=== PATIENT | female | born 1975 | race Caucasian/White ===

== ENCOUNTER 2017-08-29 10:51 | Inpatient (IN) ==
[2017-08-29] MEDS: DEXTROSE 5% NACL 0.9% 1,000 ML IV SCH ×2 (11:00→19:22)
[2017-08-29 13:10] LABS: Basophils # 0.2 10*3/uL (0.0-0.2); Basophils % 0.8 % (0.0-0.8); Eosinophils # 0.1 10*3/uL (0.0-0.87); Eosinophils % 0.8 % (0.00-10.9); Hematocrit 47.7 VOL% (35.7-47.0); Hemoglobin 14.6 GM/DL (12.0-16.0); Immature Granulocytes % 1.9 %; Immature Granulocytes Absolute 0.33 #; Lymphocytes # 4.3 10*3/uL (1.4-4.0); Lymphocytes % 24.4 % (21.3-54.2); Mean Corpuscular HGB Conc 30.6 GM/DL (32-36); Mean Corpuscular Hemoglobin 27 PG (27-34); Mean Corpuscular Volume 87.2 FL (87-102); Mean Platelet Volume 10.2 FL (9.6-12.0); Monocytes # 1.3 10*3/uL (0.11-0.8); Monocytes % 7.4 % (1.7-12.7); Neutrophils # 11.5 10*3/uL (1.4-7.4); Neutrophils % 64.7 % (38.7-73.9); Platelet Count 362 T/CUMM (130-400); Red Blood Count 5.47 MC/CUMM (3.8-5.5); Red Cell Distribution Width 13.4 % (9.3-17.3); White Blood Count 17.7 T/CUMM (4-12)
[2017-08-29 13:52] LABS: Albumin 3.4 G/DL (3.4-5.0); Bilirubin,Total 0.5 MG/DL (0.2-1.0); Calcium 8.5 MG/DL (8.5-10.1); Osmolality,Calculated 276.7 MOS/KG (273-304); Potassium 4.3 MMOL/L (3.5-5.1); Thyroid Stimulating Hormone 2.16 uIU/ml (0.358-3.74); Total Protein 7.2 G/DL (6.4-8.3)
[2017-08-29] MEDS: cefTAZidime 1,000 MG in SYRINGE 1 EACH IV SCH ×4 (14:00→21:59)
[2017-08-29 14:09] LABS: Troponin I Only < 0.015 NG/ML (0.00-0.045)
[2017-08-29 14:43] LABS: Apearance,Urine Slightly Hazy (Clear); Bilirubin,Urine Negative (Negative); Blood, Urine Negative (Negative); Glucose,Urine (UA) Negative (Negative); Ketones,Urine Negative (Negative); Mucus,Urine Occasional /LPF (Occasional); Nitrite,Urine Negative (Negative); Protein,Urine Negative; RBC,Urine 1 /HPF (0-4); Squamous Epithelial Cell,Urine Occasional /HPF (0-10); Urine Color Yellow (Yellow); Urine Specific Gravity 1.011 (1.001-1.035); Urine Urobilinogen < 2.0 EU/DL (0.2-1.0); WBC,Urine 3 /HPF (0-6)
[2017-08-29] MEDS: MEROPENEM 1,000 MG in SYRINGE 1 EACH IV SCH ×2 (14:45→22:00)
[2017-08-29] MEDS: SERTRALINE 25 MG TABLET PO SCH (20:54)
[2017-08-29] MEDS: MELATONIN 3 MG TABLET PO SCH (20:54)
[2017-08-29] MEDS: CITALOPRAM 20 MG TABLET PO SCH (20:54)
[2017-08-30] MEDS: DEXTROSE 5% NACL 0.9% 1,000 ML IV SCH ×3 (05:08→20:03)
[2017-08-30 05:32] LABS: Basophils # 0.1 10*3/uL (0.0-0.2); Basophils % 0.6 % (0.0-0.8); Eosinophils # 0.3 10*3/uL (0.0-0.87); Eosinophils % 1.9 % (0.00-10.9); Hematocrit 42.9 VOL% (35.7-47.0); Hemoglobin 13.8 GM/DL (12.0-16.0); Immature Granulocytes % 0.7 %; Lymphocytes # 6.5 10*3/uL (1.4-4.0); Lymphocytes % 43.9 % (21.3-54.2); Mean Corpuscular HGB Conc 32.2 GM/DL (32-36); Mean Corpuscular Hemoglobin 27 PG (27-34); Mean Corpuscular Volume 84.1 FL (87-102); Monocytes # 0.9 10*3/uL (0.11-0.8); Neutrophils % 46.9 % (38.7-73.9); Platelet Count 304 T/CUMM (130-400); Red Cell Distribution Width 13.3 % (9.3-17.3); White Blood Count 14.9 T/CUMM (4-12)
[2017-08-30] MEDS: cefTAZidime 1,000 MG in SYRINGE 1 EACH IV SCH ×4 (06:04→21:18)
[2017-08-30] MEDS: MEROPENEM 1,000 MG in SYRINGE 1 EACH IV SCH ×3 (08:02→23:55)
[2017-08-30] MEDS: MELATONIN 3 MG TABLET PO SCH (20:02)
[2017-08-30] MEDS: SERTRALINE 25 MG TABLET PO SCH (20:02)
[2017-08-30] MEDS: CITALOPRAM 20 MG TABLET PO SCH (20:02)
[2017-08-30] MEDS ORDERED: ALUMINUM/MAGNES/SIMETH MAX STR 30 ML UDCUP PO PRN (21:28)
[2017-08-30] MEDS ORDERED: PANTOPRAZOLE 40 MG TABLET PO SCH (21:30)
[2017-08-30] MEDS: PANTOPRAZOLE 40 MG TABLET PO SCH (22:09)
[2017-08-31 05:08] LABS: Basophils # 0.1 10*3/uL (0.0-0.2); Basophils % 0.6 % (0.0-0.8); Eosinophils # 0.4 10*3/uL (0.0-0.87); Eosinophils % 3.2 % (0.00-10.9); Hematocrit 44.3 VOL% (35.7-47.0); Hemoglobin 14.2 GM/DL (12.0-16.0); Immature Granulocytes Absolute 0.13 #; Lymphocytes # 5.4 10*3/uL (1.4-4.0); Lymphocytes % 41.9 % (21.3-54.2); Mean Corpuscular HGB Conc 32.1 GM/DL (32-36); Mean Corpuscular Hemoglobin 27 PG (27-34); Mean Corpuscular Volume 84.1 FL (87-102); Mean Platelet Volume 9.6 FL (9.6-12.0); Monocytes # 0.9 10*3/uL (0.11-0.8); Monocytes % 6.9 % (1.7-12.7); Neutrophils % 46.4 % (38.7-73.9); Platelet Count 328 T/CUMM (130-400); Red Blood Count 5.27 MC/CUMM (3.8-5.5); Red Cell Distribution Width 13.5 % (9.3-17.3)
[2017-08-31] MEDS: cefTAZidime 1,000 MG in SYRINGE 1 EACH IV SCH ×3 (05:15→21:02)
[2017-08-31] MEDS: MEROPENEM 1,000 MG in SYRINGE 1 EACH IV SCH ×3 (06:19→22:18)
[2017-08-31] MEDS: DEXTROSE 5% NACL 0.9% 1,000 ML IV SCH ×4 (06:23→21:01)
[2017-08-31] MEDS: PANTOPRAZOLE 40 MG TABLET PO SCH ×3 (07:30→21:01)
[2017-08-31] MEDS: ONDANSETRON 4 MG/2 ML VIAL IV PRN (07:49)
[2017-08-31] MEDS ORDERED: PANTOPRAZOLE 40 MG TABLET PO SCH (09:00)
[2017-08-31] MEDS: MELATONIN 3 MG TABLET PO SCH (21:01)
[2017-08-31] MEDS: CITALOPRAM 20 MG TABLET PO SCH (21:01)
[2017-08-31] MEDS: SERTRALINE 25 MG TABLET PO SCH (21:01)
[2017-09-01] MEDS: DEXTROSE 5% NACL 0.9% 1,000 ML IV SCH ×2 (05:14→13:03)
[2017-09-01] MEDS: cefTAZidime 1,000 MG in SYRINGE 1 EACH IV SCH ×2 (05:15→13:02)
[2017-09-01] MEDS: ONDANSETRON 4 MG/2 ML VIAL IV PRN (06:30)
[2017-09-01] MEDS: MEROPENEM 1,000 MG in SYRINGE 1 EACH IV SCH ×2 (06:34→13:34)
[2017-09-01] MEDS: PANTOPRAZOLE 40 MG TABLET PO SCH (08:20)
[2017-09-01 11:45] VITALS: BP 127/73
== END 2017-09-01 15:33 | disposition home or self-care (01) | DRG 195 ==
LOC: N.5E 11:01
PROVIDERS: ADMIT Internal Medicine Pulmonary Disease; ATTEND Internal Medicine Pulmonary Disease

== ENCOUNTER 2019-04-24 18:35 | Observation (INO) ==
[2019-04-24] MEDS ORDERED: ASPIRIN 325 MG TABLET PO STA (18:45)
[2019-04-24] MEDS ORDERED: NITROGLYCERIN SL 0.4 MG TABLET SL STA ×2 (19:04→20:05)
[2019-04-24 19:08] LABS: Basophils # 0.1 10*3/uL (0.0-0.2); Basophils % 0.8 % (0.0-0.8); Eosinophils # 0.2 10*3/uL (0.0-0.87); Eosinophils % 1.6 % (0.00-10.9); Hematocrit 46.3 VOL% (35.7-47.0); Hemoglobin 14.6 GM/DL (12.0-16.0); Immature Granulocytes % 0.3 %; Immature Granulocytes Absolute 0.04 #; Lymphocytes # 3.7 10*3/uL (1.4-4.0); Lymphocytes % 31.9 % (21.3-54.2); Mean Corpuscular HGB Conc 31.5 GM/DL (32-36); Mean Corpuscular Volume 84.8 FL (87-102); Mean Platelet Volume 9.7 FL (9.6-12.0); Neutrophils % 58.4 % (38.7-73.9); Platelet Count 347 T/CUMM (130-400); Red Blood Count 5.46 MC/CUMM (3.8-5.5); Red Cell Distribution Width 13.6 % (9.3-17.3); White Blood Count 11.6 T/CUMM (4-12)
[2019-04-24] MEDS ORDERED: ASPIRIN 325 MG TABLET ONE (19:18)
[2019-04-24 19:25] LABS: Albumin 4.1 G/DL (3.4-5.0); Bilirubin,Total 0.6 MG/DL (0.2-1.0); Calcium 9.3 MG/DL (8.5-10.1); Osmolality,Calculated 279.4 MOS/KG (273-304); Total Protein 8.6 G/DL (6.4-8.3)
[2019-04-24] MEDS ORDERED: MORPHINE 4 MG/1 ML VIAL IV PRN (20:22)
[2019-04-24] MEDS ORDERED: NITROGLYCERIN SL 0.4 MG TABLET SL PRN (20:22)
[2019-04-24] MEDS ORDERED: GLUCAGON 1 MG VIAL IM PRN (20:22)
[2019-04-24] MEDS ORDERED: ONDANSETRON 4 MG/2 ML VIAL IV PRN (20:22)
[2019-04-24] MEDS ORDERED: ACETAMINOPHEN 325 MG TABLET PO PRN (20:22)
[2019-04-24] MEDS ORDERED: POTASSIUM CHLORIDE 20 MEQ TABLET PO PRN (20:22)
[2019-04-24] MEDS ORDERED: DEXTROSE 10% 250 ML BAG IV PRN (20:22)
[2019-04-24] MEDS ORDERED: MELATONIN 3 MG TABLET PO SCH (22:57)
[2019-04-24] MEDS ORDERED: amLODIPine 10 MG TABLET PO SCH (22:57)
[2019-04-24] MEDS ORDERED: SERTRALINE 25 MG TABLET PO SCH (22:57)
[2019-04-25 00:38] LABS: Risk Ratio 3.46; Thyroid Stimulating Hormone 2.22 uIU/ml (0.358-3.74)
[2019-04-25 01:05] LABS: Apearance,Urine CLEAR (Clear); Bacteria,Urine Occasional /HPF (Few); Bilirubin,Urine Negative (Negative); Blood, Urine Negative (Negative); Glucose,Urine (UA) Negative (Negative); Ketones,Urine 5 mg/dL (Negative); Mucus,Urine Occasional /LPF (Occasional); Nitrite,Urine Negative (Negative); Protein,Urine Negative; RBC,Urine 1 /HPF (0-4); Squamous Epithelial Cell,Urine Occasional /HPF (0-10); Urine Color Yellow (Yellow); Urine Urobilinogen < 2.0 EU/DL (0.2-1.0); WBC,Urine 3 /HPF (0-6)
[2019-04-25 05:41] LABS: Troponin I < 0.015 NG/ML (0.00-0.045)
[2019-04-25 07:34] LABS: Albumin 3.3 G/DL (3.4-5.0); Bilirubin,Total 0.4 MG/DL (0.2-1.0); Calcium 8.6 MG/DL (8.5-10.1); Osmolality,Calculated 281.3 MOS/KG (273-304); Total Protein 7.3 G/DL (6.4-8.3)
[2019-04-25 08:32] VITALS: BP 125/70
[2019-04-25] MEDS ORDERED: PANTOPRAZOLE 40 MG TABLET PO SCH (09:00)
[2019-04-25] MEDS ORDERED: VALSARTAN 80 MG TABLET PO SCH (09:00)
[2019-04-25] MEDS ORDERED: hydroCHLOROthiazide 12.5 MG CAPSULE PO SCH (09:00)
[2019-04-25] MEDS ORDERED: ASPIRIN EC 325 MG TABLET PO SCH (09:00)
[2019-04-25] MEDS ORDERED: VALSARTAN/HCTZ 80-12.5 MG TABLET PO SCH (09:00)
== END 2019-04-25 10:24 | disposition home or self-care (01) ==
LOC: N.EDINP 18:35 → N.ED 18:35 → SUATTDRO 20:22 → N.TELES 21:05 → N.TELEN 23:13
PROVIDERS: ADMIT Internal Medicine; ATTEND Family Medicine

== ENCOUNTER 2019-08-17 10:14 | Observation (INO) ==
[2019-08-17] MEDS ORDERED: AMPICILLIN/SULBACTAM 3,000 MG in SODIUM CHLORIDE 0.9% 100 ML IV STA (10:40)
[2019-08-17] MEDS ORDERED: SODIUM CHLORIDE 0.9% 1,000 ML IV STA (10:40)
[2019-08-17] MEDS ORDERED: HYDROmorphone 2 MG/1 ML VIAL IV STA (10:40)
[2019-08-17] MEDS ORDERED: ONDANSETRON 4 MG/2 ML VIAL IV STA (10:40)
[2019-08-17 11:29] LABS: Albumin 3.8 G/DL (3.4-5.0); Bilirubin,Total 0.6 MG/DL (0.2-1.0); Calcium 9.2 MG/DL (8.5-10.1); Osmolality,Calculated 273.7 MOS/KG (273-304); Total Protein 8.2 G/DL (6.4-8.3)
[2019-08-17] MEDS ORDERED: FAMOTIDINE 20 MG/2 ML VIAL IV ONE (12:13)
[2019-08-17] MEDS ORDERED: TISSUE ADHESIVE 1 EACH APPLICATOR TOP ONE (13:10)
[2019-08-17] MEDS ORDERED: LIDOCAINE 1%/EPI INJ 20 ML VIAL ONE (13:10)
[2019-08-17] MEDS ORDERED: BUPIVACAINE MPF 0.25% 30 ML VIAL ONE (13:10)
[2019-08-17] MEDS ORDERED: LIDOCAINE 2% 5 ML VIAL ONE (13:34)
[2019-08-17] MEDS ORDERED: propofoL 200 MG/20 ML VIAL IV ONE (13:34)
[2019-08-17] MEDS ORDERED: MIDAZOLAM 2 MG/2 ML VIAL ONE (13:34)
[2019-08-17] MEDS ORDERED: ACETAMINOPHEN 1,000 MG/100 ML VIAL IV ONE (13:35)
[2019-08-17] MEDS ORDERED: HYDROmorphone 2 MG/1 ML VIAL ONE (13:35)
[2019-08-17] MEDS ORDERED: NEOSTIGMINE 10 MG/10 ML VIAL ONE (13:35)
[2019-08-17] MEDS ORDERED: DEXAMETHASONE 4 MG/1 ML VIAL ONE (13:35)
[2019-08-17] MEDS ORDERED: LACTATED RINGERS 1,000 ML IV ONE (13:35)
[2019-08-17] MEDS ORDERED: ONDANSETRON 4 MG/2 ML VIAL ONE (13:35)
[2019-08-17] MEDS ORDERED: fentaNYL 100 MCG/2 ML VIAL ONE (13:35)
[2019-08-17] MEDS ORDERED: GLYCOPYRROLATE 0.4 MG/2 ML VIAL ONE (13:35)
[2019-08-17] MEDS ORDERED: ROCURONIUM 100 MG/10 ML VIAL IV ONE (13:35)
[2019-08-17] MEDS ORDERED: KETOROLAC 30 MG/1 ML VIAL ONE (13:58)
[2019-08-17] MEDS ORDERED: KETOROLAC 30 MG/1 ML VIAL IV ONE (13:58)
[2019-08-17] MEDS ORDERED: ONDANSETRON 4 MG/2 ML VIAL IV PRN (16:56)
[2019-08-17] MEDS: LACTATED RINGERS 1,000 ML IV SCH (18:21)
[2019-08-17] MEDS: AMPICILLIN/SULBACTAM 3,000 MG in SODIUM CHLORIDE 0.9% 100 ML IV SCH (20:59)
[2019-08-18] MEDS: AMPICILLIN/SULBACTAM 3,000 MG in SODIUM CHLORIDE 0.9% 100 ML IV SCH ×2 (03:19→08:34)
[2019-08-18] MEDS: LACTATED RINGERS 1,000 ML IV SCH (05:35)
[2019-08-18 07:27] LABS: Basophils % 0.1 % (0.0-0.8); Immature Granulocytes % 0.6 %; Immature Granulocytes Absolute 0.09 #; Lymphocytes # 1.7 10*3/uL (1.4-4.0); Lymphocytes % 12.2 % (21.3-54.2); Mean Corpuscular HGB Conc 31.2 GM/DL (32-36); Mean Corpuscular Volume 86.5 FL (87-102); Mean Platelet Volume 9.9 FL (9.6-12.0); Monocytes % 5.3 % (1.7-12.7); Neutrophils % 81.8 % (38.7-73.9); Platelet Count 351 T/CUMM (130-400); Red Blood Count 4.97 MC/CUMM (3.8-5.5); Red Cell Distribution Width 13.2 % (9.3-17.3)
[2019-08-18 07:31] LABS: Hemoglobin 13.4 GM/DL (12.0-16.0); White Blood Count 13.9 T/CUMM (4-12)
[2019-08-18 08:32] VITALS: BP 139/79
[2019-08-18] MEDS ORDERED: VALSARTAN/HCTZ 80-12.5 MG TABLET PO SCH (09:30)
[2019-08-18] MEDS ORDERED: VALSARTAN 80 MG TABLET PO SCH (10:00)
[2019-08-18] MEDS ORDERED: hydroCHLOROthiazide 12.5 MG CAPSULE PO SCH (10:00)
[2019-08-18] MEDS ORDERED: MELATONIN 3 MG TABLET PO SCH (21:00)
[2019-08-18] MEDS ORDERED: SERTRALINE 25 MG TABLET PO SCH (21:00)
== END 2019-08-18 11:05 | disposition home or self-care (01) ==
LOC: N.ED 10:14 → N.EDINP 10:14 → N.3E 12:00
PROVIDERS: ADMIT Surgery; ATTEND Surgery

== ENCOUNTER 2019-09-29 08:49 | Observation (INO) ==
[2019-09-29] MEDS ORDERED: ASPIRIN 325 MG TABLET PO STA (09:44)
[2019-09-29 09:49] LABS: Alanine Aminotransferase 21 U/L (13-56); Albumin 3.6 G/DL (3.4-5.0); Alkaline Phosphatase 61 U/L (45-117); Aspartate Amino Transferase 14 U/L (0-37); Bilirubin,Total < 0.39 MG/DL (0.2-1.0); Blood Urea Nitrogen 14 MG/DL (7-18); Calcium 9.1 MG/DL (8.5-10.1); Estimated Glom Filtration Rate 148 ML/MIN; Glucose 104 MG/DL (74-106); Osmolality,Calculated 275.7 MOS/KG (273-304); Total Protein 7.9 G/DL (6.4-8.3); Troponin I < 0.015 NG/ML (0.00-0.045)
[2019-09-29] MEDS ORDERED: BISACODYL 5 MG TABLET PO PRN (10:18)
[2019-09-29] MEDS ORDERED: guaiFENesin/DM ER 600-30 MG TABLET PO PRN (10:18)
[2019-09-29] MEDS ORDERED: PROMETHAZINE 25 MG TABLET PO PRN (10:18)
[2019-09-29] MEDS ORDERED: LACTULOSE 20 GM/30 ML UDCUP PO PRN (10:18)
[2019-09-29] MEDS ORDERED: hydrALAZINE 20 MG/1 ML VIAL IV PRN (10:18)
[2019-09-29] MEDS ORDERED: SIMETHICONE CHEW 125 MG TABLET PO PRN (10:18)
[2019-09-29] MEDS ORDERED: MAGNESIUM SULF RIDER 2 GM in PREMIX 1 EACH IV PRN ×2 (10:18→11:01)
[2019-09-29] MEDS ORDERED: diphenhydrAMINE CAP 25 MG CAPSULE PO PRN (10:18)
[2019-09-29] MEDS ORDERED: ZALEPLON 5 MG CAPSULE PO PRN (10:18)
[2019-09-29] MEDS ORDERED: ALUMINUM/MAGNES/SIMETH MAX STR 30 ML UDCUP PO PRN (10:18)
[2019-09-29] MEDS ORDERED: CALCIUM CARBONATE CHEW 500 MG TABLET PO PRN (10:18)
[2019-09-29] MEDS ORDERED: MORPHINE 4 MG/1 ML VIAL IV PRN (10:18)
[2019-09-29] MEDS ORDERED: DOCUSATE SODIUM 100 MG CAPSULE PO PRN (10:18)
[2019-09-29] MEDS ORDERED: MAGNESIUM SULF RIDER 4 GM in PREMIX 1 EACH IV PRN (10:18)
[2019-09-29 10:32] LABS: Thyroid Stimulating Hormone 3.18 uIU/ml (0.358-3.74)
[2019-09-29] MEDS ORDERED: ENOXAPARIN 120 MG/0.8 ML SYRINGE SUBCUT ONE (10:58)
[2019-09-29] MEDS ORDERED: POTASSIUM CHLORIDE RIDER 10 MEQ in PREMIX 1 EACH IV PRN (11:01)
[2019-09-29] MEDS ORDERED: METOPROLOL SUCCINATE XL 25 MG TABLET PO SCH ×2 (11:30→21:00)
[2019-09-29] MEDS: NITROGLYCERIN 2% OINT 1 INCH/GM PACK TOP SCH ×2 (11:59→17:25)
[2019-09-29 12:33] LABS: Apearance,Urine CLEAR (Clear); Bilirubin,Urine Negative (Negative); Blood, Urine Negative (Negative); Glucose,Urine (UA) Negative (Negative); Ketones,Urine Negative (Negative); Mucus,Urine Occasional /LPF (Occasional); Nitrite,Urine Negative (Negative); Protein,Urine Negative; RBC,Urine 1 /HPF (0-4); Squamous Epithelial Cell,Urine Occasional /HPF (0-10); Urine Color Yellow (Yellow); Urine Specific Gravity 1.012 (1.001-1.035); Urine Urobilinogen < 2.0 EU/DL (0.2-1.0); WBC,Urine 1 /HPF (0-6)
[2019-09-29 13:58] LABS: Troponin I < 0.015 NG/ML (0.00-0.045)
[2019-09-29 16:48] LABS: Troponin I < 0.015 NG/ML (0.00-0.045)
[2019-09-29] MEDS ORDERED: NITROGLYCERIN SL 0.4 MG TABLET SL ONE ×2 (17:31→17:32)
[2019-09-29] MEDS: NITROGLYCERIN SL 0.4 MG TABLET SL PRN ×3 (17:35→17:48)
[2019-09-29] MEDS ORDERED: NITROGLYCERIN 2% OINT 1 INCH/GM PACK TOP ONE (17:45)
[2019-09-29] MEDS: ONDANSETRON 4 MG/2 ML VIAL IV PRN (17:47)
[2019-09-29] MEDS ORDERED: CLORAZEPATE 3.75 MG TABLET PO PRN (18:16)
[2019-09-29 20:51] LABS: Troponin I < 0.015 NG/ML (0.00-0.045)
[2019-09-29] MEDS ORDERED: SERTRALINE 25 MG TABLET PO SCH (21:00)
[2019-09-29] MEDS ORDERED: MELATONIN 3 MG TABLET PO SCH (21:00)
[2019-09-29] MEDS: ACETAMINOPHEN 325 MG TABLET PO PRN (21:02)
[2019-09-30] MEDS: NITROGLYCERIN 2% OINT 1 INCH/GM PACK TOP SCH ×3 (00:46→12:33)
[2019-09-30 00:52] LABS: Troponin I < 0.015 NG/ML (0.00-0.045)
[2019-09-30 07:02] LABS: Basophils # 0.1 10*3/uL (0.0-0.2); Basophils % 0.5 % (0.0-0.8); Eosinophils # 0.2 10*3/uL (0.0-0.87); Eosinophils % 2.2 % (0.00-10.9); Hematocrit 42.1 VOL% (35.7-47.0); Hemoglobin 13.4 GM/DL (12.0-16.0); Immature Granulocytes % 0.4 %; Immature Granulocytes Absolute 0.04 #; Lymphocytes # 3.3 10*3/uL (1.4-4.0); Lymphocytes % 33.3 % (21.3-54.2); Mean Corpuscular HGB Conc 31.8 GM/DL (32-36); Mean Corpuscular Volume 86.3 FL (87-102); Monocytes % 8.1 % (1.7-12.7); Neutrophils % 55.5 % (38.7-73.9); Platelet Count 325 T/CUMM (130-400); Red Blood Count 4.88 MC/CUMM (3.8-5.5); Red Cell Distribution Width 13.6 % (9.3-17.3)
[2019-09-30 07:15] LABS: Albumin 3.1 G/DL (3.4-5.0); Bilirubin,Total 0.9 MG/DL (0.2-1.0); Calcium 8.9 MG/DL (8.5-10.1); Osmolality,Calculated 273.7 MOS/KG (273-304); Risk Ratio 4.86; Total Protein 7.2 G/DL (6.4-8.3); VLDL CHOLESTEROL 42.6 MG/DL
[2019-09-30] MEDS ORDERED: PANTOPRAZOLE 40 MG TABLET PO SCH (09:00)
[2019-09-30] MEDS ORDERED: ASPIRIN EC 81 MG TABLET PO SCH (09:00)
[2019-09-30] MEDS: ONDANSETRON 4 MG/2 ML VIAL IV PRN (11:38)
[2019-09-30] MEDS ORDERED: LIDOCAINE 1% 20 ML VIAL ONE (12:16)
[2019-09-30] MEDS ORDERED: HEPARIN/NACL 0.9% 2 UNITS/ML 1,000 ML IV ONE (12:16)
[2019-09-30] MEDS ORDERED: MIDAZOLAM 2 MG/2 ML VIAL ONE ×2 (12:41→13:09)
[2019-09-30] MEDS ORDERED: fentaNYL 100 MCG/2 ML VIAL ONE (12:42)
[2019-09-30] MEDS ORDERED: DIAZEPAM 5 MG TABLET PO ONE (13:00)
[2019-09-30] MEDS ORDERED: diphenhydrAMINE CAP 25 MG CAPSULE PO ONE (13:00)
[2019-09-30] MEDS ORDERED: SODIUM CHLORIDE 0.9% 1,000 ML IV SCH (14:00)
[2019-09-30] MEDS: ACETAMINOPHEN 325 MG TABLET PO PRN (15:29)
[2019-09-30 16:57] VITALS: BP 136/81
== END 2019-09-30 17:22 | disposition home or self-care (01) ==
LOC: N.EDINP 08:49 → N.ED 08:49 → N.TELEN 10:42
PROVIDERS: ADMIT Internal Medicine Cardiovascular Disease; ATTEND Internal Medicine Cardiovascular Disease
PROC: CLCCHCL (ICD-10-PCS; 2019-09-30 13:45)